=== PATIENT | female | born 1945 | race Two or more races ===

== ENCOUNTER 2021-07-06 07:02 | Day surgery (SDC) | payer OTHER | END 2021-07-06 12:05 | disposition home or self-care (01) | LOC: AMB-ENDOS 07:02 | PROVIDERS: ATTEND Surgery | DX: D12.5 Benign neoplasm of sigmoid colon (principal); K64.8 Other hemorrhoids ==

== ENCOUNTER 2021-09-28 09:15 | Inpatient (IN) | payer OTHER ==
[~2021-09-28] VITALS: Ht 157.5 cm; Wt 62.1 kg
[2021-09-28] MEDS ORDERED: COZAAR50 MG PO (14:58)
[2021-09-28] MEDS ORDERED: SYNTHROID75 MCG PO (14:59)
[2021-10-03] MEDS ORDERED: POLY119PG PO (14:03)
[2021-10-03] MEDS ORDERED: OXYC1TAB9 PO (14:03)
== END 2021-10-03 14:32 | disposition home or self-care (01) | DRG 331 ==
LOC: SURH 09-30 07:45 → O/R 09-30 07:45 → SURH 09-30 09:15 → O/R 09-30 15:46 → SURH 09-30 15:48
PROVIDERS: ADMIT Surgery; ATTEND Surgery
PROC: 0DBP4ZZ Excision of Rectum, Percutaneous Endoscopic Approach (ICD-10-PCS; 2021-09-30)
PROC: 07BC4ZZ Excision of Pelvis Lymphatic, Percutaneous Endoscopic Approach (ICD-10-PCS; 2021-09-30)
PROC: 0DTN4ZZ Resection of Sigmoid Colon, Percutaneous Endoscopic Approach (ICD-10-PCS; principal; 2021-09-30 10:45)
DX: D12.7 Benign neoplasm of rectosigmoid junction (principal); I10 Essential (primary) hypertension; E03.8 Other specified hypothyroidism; Z80.0 Family history of malignant neoplasm of digestive organs